=== PATIENT | male | born 1945 | race African-American/Black ===

== ENCOUNTER 2016-10-09 07:48 | Day surgery (SDC) | payer OTHER, BC ==
[2016-10-06 13:47] VITALS: BMI 33.0
[2016-10-09] MEDS ORDERED: PROPOFOL 20 ML ONE ×2 (08:03)
[2016-10-09 11:07] VITALS: TEMP 99.3
[2016-10-09 11:12] VITALS: BP 123/69; PULSE 72
== END 2016-10-09 10:15 | disposition home or self-care (01) ==
LOC: FASU-ENDO 07:48
PROVIDERS: ATTEND Internal Medicine Gastroenterology
PROC: 0DJD8ZZ Inspection of Lower Intestinal Tract, Via Natural or Artificial Opening Endoscopic (ICD-10-PCS; principal; 2016-10-09 09:01)
DX: Z86.010 Personal history of colon polyps (principal); Z80.3 Family history of malignant neoplasm of breast

== ENCOUNTER 2022-12-29 09:34 | Day surgery (SDC) | payer OTHER, BC ==
[2022-12-24 16:18] VITALS: BMI 35.6
[2022-12-29 12:04] VITALS: BP 132/82; PULSE 78; RESP 18; TEMP 96.8
== END 2022-12-29 12:04 | disposition home or self-care (01) ==
LOC: FASU-ENDO 09:34
PROVIDERS: ATTEND Internal Medicine Gastroenterology
PROC: 0DBK8ZX Excision of Ascending Colon, Via Natural or Artificial Opening Endoscopic, Diagnostic (ICD-10-PCS; 2022-12-29)
PROC: 3E0H8KZ Introduction of Other Diagnostic Substance into Lower GI, Via Natural or Artificial Opening Endoscopic (ICD-10-PCS; 2022-12-29)
PROC: 0DBN8ZX Excision of Sigmoid Colon, Via Natural or Artificial Opening Endoscopic, Diagnostic (ICD-10-PCS; principal; 2022-12-29 10:50)
DX: Z12.11 Encounter for screening for malignant neoplasm of colon (principal); D12.2 Benign neoplasm of ascending colon; K63.5 Polyp of colon; Z86.010 Personal history of colon polyps; Z80.0 Family history of malignant neoplasm of digestive organs
CPT/HCPCS: 88305-TC

== ENCOUNTER 2024-02-18 07:54 | Day surgery (SDC) | payer OTHER, BC ==
[2024-02-15 15:18] VITALS: BMI 34.5
[2024-02-18 08:14] VITALS: RESP 16
[2024-02-18 09:56] VITALS: TEMP 97
[2024-02-18 09:58] VITALS: BP 128/73; PULSE 73
== END 2024-02-18 10:21 | disposition home or self-care (01) ==
LOC: FASU-ENDO 07:54
PROVIDERS: ATTEND Internal Medicine Gastroenterology
PROC: 0DBN8ZX Excision of Sigmoid Colon, Via Natural or Artificial Opening Endoscopic, Diagnostic (ICD-10-PCS; principal; 2024-02-18 09:22)
DX: Z12.11 Encounter for screening for malignant neoplasm of colon (principal); K63.5 Polyp of colon; Z86.010 Personal history of colon polyps; Z80.0 Family history of malignant neoplasm of digestive organs; Z83.719 Family history of colon polyps, unspecified; Z98.0 Intestinal bypass and anastomosis status
CPT/HCPCS: 88305-TC